=== PATIENT | female | born 1985 | race Caucasian/White ===

== ENCOUNTER 2016-05-11 22:02 | Inpatient (IN) | END 2016-05-14 16:45 | disposition home or self-care (01) | DRG 637 | DX: E10.10 Type 1 diabetes mellitus with ketoacidosis without coma (principal); G92 Toxic encephalopathy; T68.XXXA Hypothermia, initial encounter; E87.2 Acidosis; R65.10 Systemic inflammatory response syndrome (SIRS) of non-infectious origin without acute organ dysfunction; E83.42 Hypomagnesemia; D72.829 Elevated white blood cell count, unspecified; D63.8 Anemia in other chronic diseases classified elsewhere; E03.9 Hypothyroidism, unspecified; F15.10 Other stimulant abuse, uncomplicated; T38.3X6A Underdosing of insulin and oral hypoglycemic [antidiabetic] drugs, initial encounter; Z96.41 Presence of insulin pump (external) (internal); Z79.4 Long term (current) use of insulin; Z91.14 Patient's other noncompliance with medication regimen ==

== ENCOUNTER 2017-12-17 11:18 | Inpatient (IN) | END 2017-12-19 19:30 | disposition home or self-care (01) | DRG 637 ==